=== PATIENT | female | born 2000 | race Caucasian/White ===

== ENCOUNTER 2024-12-11 17:39 | Emergency (ER) | payer MEDICAID, OTHER ==
[~2024-12-11] VITALS: Ht 157.5 cm; Wt 54.4 kg
[2024-12-11 18:22] VITALS: BP 114/70; TEMP 98.3; O2SAT 99
== END 2024-12-11 20:01 | disposition left against medical advice (07) ==
LOC: ER 17:39
DX: R42 Dizziness and giddiness (principal); Z53.21 Procedure and treatment not carried out due to patient leaving prior to being seen by health care provider
CPT/HCPCS: 82962-TC